=== PATIENT | female | born 2000 | race Two or more races ===

== ENCOUNTER 2020-05-02 23:04 | Inpatient (IN) | payer MEDICAID, MEDICARE ==
[~2020-05-02] VITALS: Ht 172.7 cm; Wt 96.2 kg
[2020-05-03] MEDS ORDERED: DEXT 5%/LACTATED RINGERS 1,000 ML IV SCH (03:20)
[2020-05-03] MEDS ORDERED: CARBOPROST TROMETHAMINE 250 MCG/ML AMPUL IM PRN (03:30)
[2020-05-03] MEDS ORDERED: NALOXONE HCL 0.4 MG/ML 1ML VIAL IM PRN (03:30)
[2020-05-03] MEDS ORDERED: MINERAL OIL 30ML BOTTLE PO NR (03:30)
[2020-05-03] MEDS ORDERED: LIDOCAINE HCL 1% 20ML VIAL (Pyxis) INJ INFIL SCH (03:30)
[2020-05-03] MEDS ORDERED: BUTORPHANOL TARTRATE 2 MG/ML VIAL IV PRN (03:30)
[2020-05-03] MEDS ORDERED: METHYLERGONOVINE MALEATE 0.2 MG/ML IM PRN (03:30)
[2020-05-03] MEDS ORDERED: LACTATED RINGERS 1,000 ML IV SCH (04:30)
[2020-05-03] MEDS ORDERED: PENICILLIN G POTASSIUM 5 MMU in DEXT 5% WATER 100 ML IV NR (04:30)
[2020-05-03 04:34] LABS: BASOPHILS % 0.6 % (0.0-2.0); EOSINOPHILS % 0.3 % (0.0-5.0); HEMATOCRIT. 31.2 % (36.0-48.0); HEMOGLOBIN. 10.1 g/dL (12.0-16.0); MEAN CORPUSCULAR HEMOGLOBIN 24.3 pg (28.0-32.0); MEAN CORPUSCULAR VOLUME 75.3 fL (81.0-99.0); MEAN PLATELET VOLUME 8.5 fl (7.4-10.4); NEUTROPHILS % 74.1 % (40.0-76.0); PLATELET 256 x1000/uL (130-400); RED BLOOD CELL COUNT 4.15 mill/uL (4.2-5.4); RED CELL DISTRIBUTION WIDTH 17.7 % (11.6-14.6)
[2020-05-03 04:43] LABS: CLARITY URINE CLEAR (CLEAR); COLOR URINE YELLOW (YELLOW); INR 0.9; KETONES URINE NEGATIVE (NEGATIVE); LEUKOCYTE ESTERASE URINE TRACE (NEGATIVE); NITRITE URINE NEGATIVE (NEGATIVE); OCCULT BLOOD URINE NEGATIVE (NEGATIVE); PARTIAL THROMBOPLASTIN TIME 25.1 sec (23.4-31.0); PROTEIN URINE NEGATIVE (NEGATIVE); PROTHROMBIN TIME 9.9 sec (9.6-11.0); SPECIFIC GRAVITY URINE 1.024 (1.005-1.030)
[2020-05-03 05:35] LABS: *AMPHETAMINES SCREEN URINE NEGATIVE (NEGATIVE); *BARBITURATES SCREEN URINE NEGATIVE (NEGATIVE); *BENZODIAZEPINES SCREEN URINE NEGATIVE (NEGATIVE); *COCAINE SCREEN URINE NEGATIVE (NEGATIVE)
[2020-05-03 05:36] LABS: CANNABINOID URINE SCREEN NEGATIVE (NEGATIVE); METHADONE URINE SCREEN NEGATIVE (NEGATIVE); OPIATES URINE SCREEN NEGATIVE (NEGATIVE); PHENCYCLIDINE URINE SCREEN NEGATIVE (NEGATIVE)
[2020-05-03 05:43] LABS: HEPATITIS B SURFACE ANTIGEN NEGATIVE
[2020-05-03] MEDS ORDERED: ROPIVACAINE HCL 2MG/ML (0.2%) 200ML BOTTLE IR ONE (06:15)
[2020-05-03] MEDS ORDERED: FENTANYL CITRATE/PF 50MCG/ML 2ML VIAL ONE (06:21)
[2020-05-03] MEDS ORDERED: BUPIVACAINE HCL/PF 0.25% (2.5MG/ML) 10ML ONE (06:22)
[2020-05-03] MEDS ORDERED: ROPIVACAINE HCL/PF EPIDURAL 200 ML EPI SCH (06:30)
[2020-05-03] MEDS: DEXT 5%/LR + PITOCIN 20UNITS/L 1,000 ML IV SCH ×2 (07:33→15:36)
[2020-05-03] MEDS: PENICILLIN G POTASSIUM 2.5 MMU in DEXTROSE 5% WATER 50 ML IV SCH ×2 (08:54→13:23)
[2020-05-03] MEDS ORDERED: DEXT 5%/LR + PITOCIN 20UNITS/L 1,000 ML IV SCH (15:17)
[2020-05-03] MEDS ORDERED: HEMORRHOIDAL SUPP PR PRN (15:30)
[2020-05-03] MEDS ORDERED: BENZOCAINE/LANOLIN/ALOE VERA SPRAY TOP PRN (15:30)
[2020-05-03] MEDS ORDERED: IBUPROFEN 400MG TABLET PO PRN (15:30)
[2020-05-03] MEDS ORDERED: GLYCERIN/WITCH HAZEL LEAF MEDICATED PAD TOP PRN (15:30)
[2020-05-03] MEDS ORDERED: RHO(D) IMMUNE GLOBULIN 300 MCG/SYR IM PRN (15:30)
[2020-05-03] MEDS ORDERED: DIPHENHYDRAMINE 25MG CAPSULE PO PRN (15:30)
[2020-05-03] MEDS ORDERED: LANOLIN OINT 7GM TUBE TOP PRN (15:30)
[2020-05-03] MEDS ORDERED: ACETAMINOPHEN WITH CODEINE 300/30MG TABLET PO PRN (15:30)
[2020-05-03] MEDS ORDERED: BISACODYL 10MG SUPP PR PRN (15:30)
[2020-05-03 17:15] VITALS: BP 130/70
[2020-05-03 18:45] VITALS: BP 134/73
[2020-05-03 19:20] VITALS: BP 133/71
[2020-05-03] MEDS: IBUPROFEN 800MG TABLET PO PRN (20:38)
[2020-05-03] MEDS: SIMETHICONE 80MG TABLET CHEW PO SCH (20:39)
[2020-05-03 20:46] VITALS: BP 134/69
[2020-05-03] MEDS ORDERED: DOCUSATE SODIUM 100MG CAPSULE PO SCH (21:00)
[2020-05-04 00:30] VITALS: BP 135/69
[2020-05-04] MEDS: IBUPROFEN 800MG TABLET PO PRN (05:35)
[2020-05-04 07:23] LABS: BASOPHILS % 0.2 % (0.0-2.0); EOSINOPHILS % 0.3 % (0.0-5.0); HEMATOCRIT. 24.2 % (36.0-48.0); HEMOGLOBIN. 7.9 g/dL (12.0-16.0); LYMPHOCYTES % 12.5 % (20.0-50.0); MEAN CORPUSCULAR HEMOGLOBIN 24.3 pg (28.0-32.0); MEAN CORPUSCULAR VOLUME 74.1 fL (81.0-99.0); MEAN PLATELET VOLUME 8.1 fl (7.4-10.4); MONOCYTES % 5.5 % (2.0-8.0); NEUTROPHILS % 81.5 % (40.0-76.0); PLATELET 208 x1000/uL (130-400); RED BLOOD CELL COUNT 3.26 mill/uL (4.2-5.4); RED CELL DISTRIBUTION WIDTH 17.9 % (11.6-14.6)
[2020-05-04 07:43] VITALS: BP 112/61
[2020-05-04] MEDS ORDERED: PRENATAL VIT/FE FUMARATE/FA TABLET PO SCH (09:00)
[2020-05-04] MEDS: SIMETHICONE 80MG TABLET CHEW PO SCH ×2 (09:02→13:00)
[2020-05-04] MEDS: FERROUS SULFATE 325MG TABLET PO SCH ×2 (09:02→13:10)
== END 2020-05-04 18:10 | disposition home or self-care (01) | DRG 560 ==
LOC: 8 EST LDRP 23:04 → OBSVTOIN 23:04 → 8 EST A/PP 05-03 16:54 → 8EST 05-03 17:40
PROVIDERS: ADMIT Obstetrics & Gynecology; ATTEND Obstetrics & Gynecology
PROC: 10D07Z6 Extraction of Products of Conception, Vacuum, Via Natural or Artificial Opening (ICD-10-PCS; principal; 2020-05-03)
PROC: 3E0R3BZ Introduction of Anesthetic Agent into Spinal Canal, Percutaneous Approach (ICD-10-PCS; 2020-05-03)
PROC: 00HU33Z Insertion of Infusion Device into Spinal Canal, Percutaneous Approach (ICD-10-PCS; 2020-05-03)
PROC: 0W8NXZZ Division of Female Perineum, External Approach (ICD-10-PCS; 2020-05-03)
DX: O48.0 Post-term pregnancy (principal); O99.824 Streptococcus B carrier state complicating childbirth; Z3A.41 41 weeks gestation of pregnancy; Z37.0 Single live birth; O99.02 Anemia complicating childbirth; K21.9 Gastro-esophageal reflux disease without esophagitis; K27.9 Peptic ulcer, site unspecified, unspecified as acute or chronic, without hemorrhage or perforation; O99.62 Diseases of the digestive system complicating childbirth; K92.9 Disease of digestive system, unspecified; J30.9 Allergic rhinitis, unspecified; O99.52 Diseases of the respiratory system complicating childbirth; Z88.0 Allergy status to penicillin
CPT/HCPCS: 36415; 80305; 81003; 85025; 86592; 86703; 86762; 86850; 86900; 87340; 99281; G0378; J0595; J2540; J2590; J2795; J3010; J3490; J7060; J7120; J7121